=== PATIENT | female | born 1935 | race American Indian/Alaskan Native ===

== ENCOUNTER 2018-10-06 15:47 | Emergency (ER) | payer MEDICARE ==
--- NOTE | 2018-10-06 15:55 | Emergency Department Report ---
Blank Doc - Documentation Documentation: This is a 83-year-old female that presents with URI symptoms with sore throat. This initial assessment/diagnostic orders/clinical plan/treatment(s) is/are subject to change based on patient's health status, clinical progression and re- assessment by fellow clinical providers in the ED. Further treatment and workup at subsequent clinical providers discretion. Patient/guardians urged not to elope from the ED as their condition may be serious if not clinically assessed and managed. Initial orders include: 1- Patient sent to MAIN for further evaluation and treatment 2- xray
--- NOTE | 2018-10-06 17:59 | XRay Report ---
PROCEDURE: Chest. TECHNIQUE: PA and lateral views. HISTORY: Cough. COMPARISONS: None. FINDINGS: The heart size is normal. There is mild tortuosity and calcification in the thoracic aorta. The lungs are clear and well expanded. There are no pleural effusions. 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 There is a mild lumbar scoliosis. IMPRESSION: No evidence of acute disease. This document is electronically signed by Josué Taylor MD., October 06 2018 05:57:14 PM ET
--- NOTE | 2018-10-06 18:01 | Emergency Department Report ---
- General Chief Complaint: Upper Respiratory Infection Stated Complaint: THROAT PAIN Time Seen by Provider: 10/06/18 15:54 Source: patient Mode of arrival: Ambulatory Limitations: No Limitations - History of Present Illness MD Complaint: sore throat (voice change hoarseness) -: days(s) (5) Severity: moderate Quality: dull Improves With: nothing Associated Symptoms: denies other symptoms, sore throat. denies: myalgias, chest pain, shortness of breath, abdominal pain, nausea, diarrhea, right sweats, weight loss, epistaxis - Related Data Allergies Allergy/AdvReac Type Severity Reaction Status Date / Time No Known Allergies Allergy Unverified 10/06/18 15:48 ED Review of Systems ROS: Stated complaint: THROAT PAIN Other details as noted in HPI Constitutional: denies: chills, fever Eyes: denies: eye pain, eye discharge, vision change ENT: denies: ear pain, throat pain Respiratory: denies: cough, shortness of breath, wheezing Cardiovascular: denies: chest pain, palpitations Endocrine: no symptoms reported Gastrointestinal: denies: abdominal pain, nausea, diarrhea Genitourinary: denies: urgency, dysuria, discharge Musculoskeletal: denies: back pain, joint swelling, arthralgia Skin: denies: rash, lesions Neurological: denies: headache, weakness, paresthesias Psychiatric: denies: anxiety, depression Hematological/Lymphatic: denies: easy bleeding, easy bruising ED Physical Exam - General Limitations: No Limitations General appearance: alert, in no apparent distress - Head Head exam: Present: atraumatic, normocephalic - Eye Eye exam: Present: normal appearance, PERRL Pupils: Present: normal accommodation - ENT ENT exam: Present: normal exam, mucous membranes moist, other (airway patent. erythema to pharynx no exudate. no fever or chills. no sweats. ) - Neck Neck exam: Present: normal inspection, full ROM. Absent: tenderness - Respiratory Respiratory exam: Present: normal lung sounds bilaterally. Absent: respiratory distress, wheezes, accessory muscle use, decreased breath sounds ( ) - Cardiovascular Cardiovascular Exam: Present: regular rate, normal rhythm. Absent: systolic murmur, diastolic murmur, rubs, gallop - GI/Abdominal GI/Abdominal exam: Present: soft, normal bowel sounds - Extremities Exam Extremities exam: Present: normal inspection - Back Exam Back exam: Present: normal inspection - Neurological Exam Neurological exam: Present: alert, oriented X3 - Psychiatric Psychiatric exam: Present: normal affect, normal mood - Skin Skin exam: Present: warm, dry, intact, normal color. Absent: rash Critical care attestation.: If time is entered above; I have spent that time in minutes in the direct care of this critically ill patient, excluding procedure time. ED Disposition Clinical Impression: Pharyngitis Disposition: TO HOME OR SELFCARE Is pt being admited?: No Does the pt Need Aspirin: No Condition: Stable Instructions: Pharyngitis (ED), Laryngitis (ED) Additional Instructions: Please follow up to primary care provider as recommended by your primary care provider initially. Strep test was negative. Please follow the instructions provided for laryngitis Referrals: [facility] EDWINA [Primary Care Provider] - 3-5 Days
[2018-10-06 19:47] VITALS: BP 137/89
== END 2018-10-06 21:05 | disposition home or self-care (01) ==
LOC: ED 15:47
DX: J02.9 Acute pharyngitis, unspecified (principal)
CPT/HCPCS: 71046; 87116; 87430; 99283

== ENCOUNTER 2018-10-11 15:05 | Emergency (ER) | payer MEDICARE ==
--- NOTE | 2018-10-11 15:18 | Emergency Department Report ---
Chief Complaint: Shoulder Injury Stated Complaint: EXTREME SHOULDER PAIN Time Seen by Provider: 10/11/18 15:15 - HPI History of Present Illness: here in er co throat and shoulder pain pt tearful she states she is depressed she drove to er she lives alone with grandson in and out. Gerald he seems to be no help per pt rx unclear recent fall- hit door social work to see pt to eval home situation mse completed MSE screening note: Focused history and physical exam performed. Due to findings the following was ordered: ED Disposition for MSE Condition: Stable
[2018-10-11 15:20] VITALS: BP 122/71
[2018-10-11] MEDS ORDERED: IBUPROFEN PO ONE (15:21)
--- NOTE | 2018-10-11 16:31 | XRay Report ---
PROCEDURE: XR SHOULDER BILAT 2+V TECHNIQUE: Bilateral shoulders 6 views HISTORY: b shoulder pain COMPARISONS: FINDINGS: There is marked degenerative change bilaterally. There is marked glenohumeral joint space narrowing. This is greater on the right there is remodeling of the glenoid with subchondral cystic and sclerotic change. There is marked remodeling of the humeral head with inferior osteophyte. On the right there is severe narrowing somewhat less prominent than on the prior exam with subchondral cystic and sclero tic change the glenoid and remodeling of the humeral head with inferior osteophyte. The AC joints tiffanie ear within normal limits. No acute fracture or dislocation is identified. IMPRESSION: Advanced degenerative changes at both glenohumeral joints somewhat greater on the left. This document is electronically signed by Juan Jones MD., October 11 2018 04:29:08 PM ET
--- NOTE | 2018-10-11 17:02 | Emergency Department Report ---
HPI - General Chief Complaint: Shoulder Injury Time Seen by Provider: 10/11/18 15:15 - HPI HPI: 83-year-old -Turkish female presents to the emergency department from home with complaint of bilateral shoulder pain that has since resolved. She says this been having this shoulder pain over the past few weeks but it worsened last night where she was unable to sleep. She tried some Tylenol with some transient relief. She was given some ibuprofen to triage she says that her shoulder pain has resolved completely at this point. She denies any fall or injury. She has a past medical history of hypertension. She does not currently have a primary care physician. ED Past Medical Hx - Past Medical History Previous Medical History?: Yes Hx Hypertension: Yes - Social History Smoking Status: Unknown if ever smoked ED Review of Systems ROS: Stated complaint: EXTREME SHOULDER PAIN Other details as noted in HPI Comment: All other systems reviewed and negative Constitutional: denies: fever Eyes: denies: eye pain, vision change ENT: denies: ear pain, throat pain Respiratory: denies: cough, shortness of breath Cardiovascular: denies: chest pain, palpitations Gastrointestinal: denies: abdominal pain, vomiting Genitourinary: denies: dysuria, discharge Musculoskeletal: arthralgia. denies: joint swelling Skin: denies: rash, lesions Neurological: denies: headache, weakness Physical Exam - Physical Exam Vital Signs: Vital Signs 10/11/18 15:16 Temperature 97.1 F L Pulse Rate 89 Respiratory 18 Rate Blood Pressure 122/71 O2 Sat by Pulse 99 Oximetry Physical Exam: GENERAL: The patient is well-developed well-nourished. HEENT: Normocephalic. Atraumatic. Patient has moist mucous membranes. EYES: Extraocular motions are intact. NECK: Supple. Trachea is midline. CHEST/LUNGS: Clear to auscultation. There is no respiratory distress noted. HEART/CARDIOVASCULAR: Regular. There is no tachycardia. There is no obvious murmur. ABDOMEN: There is no abdominal distention. SKIN: Skin is warm and dry. NEURO: The patient is awake, alert, and oriented. The patient is cooperative. The patient has no focal neurologic deficits. The patient has normal speech. MUSCULOSKELETAL: There is no tenderness or deformity. There is no evidence of acute injury. ED Course Vital Signs 10/11/18 15:16 Temperature 97.1 F L Pulse Rate 89 Respiratory 18 Rate Blood Pressure 122/71 O2 Sat by Pulse 99 Oximetry ED Medical Decision Making - Radiology Data Radiology results: report reviewed PROCEDURE: XR SHOULDER BILAT 2+V TECHNIQUE: Bilateral shoulders 6 views HISTORY: b shoulder pain COMPARISONS: FINDINGS: There is marked degenerative change bilaterally. There is marked glenohumeral joint space narrowing. This is greater on the right there is remodeling of the glenoid with subchondral cystic and sclerotic change. There is marked remodeling of the humeral head with inferior osteophyte. On the right there is severe narrowing somewhat less prominent than on the prior exam with subchondral cystic and sclerotic change the glenoid and remodeling of the humeral head with inferior osteophyte. The AC joints appear within normal limits. No acute fracture or dislocation is identified. IMPRESSION: Advanced degenerative changes at both glenohumeral joints somewhat greater on the left. This document is electronically signed by Juan Mendez MD., October 11 2018 04:29:08 PM ET Transcribed By: BETINA Dictated By: COLBY MENDEZ MD Electronically Authenticated By: COLBY MENDEZ MD Signed Date/Time: 10/11/18 1631 - Medical Decision Making This patient presents to the emergency department with some acute on chronic bilateral shoulder pain. There was no injury, fall, or obvious initial etiology. X-ray of the bilateral shoulders were done that showed advanced degenerative changes consistent with osteoarthritis. At the time of my examination, after the patient received some ibuprofen, she has no pain and is a symptomatically. Patient will be given a referral for orthopedist for follow-up for evaluation of this degenerative joint disease but return to the ER with any worsening of her symptoms or any acute distress. - Differential Diagnosis fracture, dislocation, osteoarthritis Critical Care Time: No Critical care attestation.: If time is entered above; I have spent that time in minutes in the direct care of this critically ill patient, excluding procedure time. ED Disposition Clinical Impression: Arthritis of both shoulder regions Bilateral shoulder pain Qualifiers: Chronicity: unspecified Qualified Code(s): M25.511 - Pain in right shoulder Disposition: DC-01 TO HOME OR SELFCARE Is pt being admited?: No Condition: Stable Instructions: Osteoarthritis (ED), Arthralgia (ED) Additional Instructions: I am giving you a referral for some local primary care physicians. I am also giving you two different referrals for local orthopedists (bone / joint doctors) to follow-up regarding your shoulder pains. Return to the emergency Department with any worsening of your symptoms or any acute distress. Referrals: SADE ARELLANO MD [Staff Physician] - 2-3 Days [facility] [Provider Group] - 2-3 Days ROSLYN FARRAR MD [Staff Physician] - 2-3 Days ZAYRA IRVIN MD [Staff Physician] - 2-3 Days Time of Disposition: 17:07
== END 2018-10-11 17:15 | disposition home or self-care (01) ==
LOC: ED 15:05
DX: M19.012 Primary osteoarthritis, left shoulder (principal); M19.011 Primary osteoarthritis, right shoulder; I10 Essential (primary) hypertension

== ENCOUNTER 2018-10-29 14:59 | Emergency (ER) | payer MEDICARE ==
--- NOTE | 2018-10-29 15:45 | Emergency Department Report ---
Blank Doc - Documentation Documentation: This is a 83-year-old female that presents for a social services aide consult. Patient stated needs a new place to stay. This initial assessment/diagnostic orders/clinical plan/treatment(s) is/are subject to change based on patient's health status, clinical progression and re-assessment by fellow clinical providers in the ED. Further treatment and workup at subsequent clinical providers discretion. Patient/guardians urged not to elope from the ED as their condition may be serious if not clinically assessed and managed. Initial orders include: 1- Patient sent to [facility] for further evaluation and treatment 2- social services aide consult called and pending
--- NOTE | 2018-10-29 16:36 | Cat Scan Report ---
PROCEDURE: CT HEAD/BRAIN WO CON TECHNIQUE: Axial helical imaging from the skull base to the vertex. HISTORY: Altered Mental Status COMPARISONS: None FINDINGS: Low-attenuation in the subcortical and deep white matter of the cerebral hemispheres bilaterally most likely represent areas of chronic postischemic demyelination/small vessel disease. There is no CT evidence of an acute intracranial process and no evidence of intracranial hemorrhage o r mass effect. Ventricular size is concordant with the degree of atrophy. The visualized portions of the orbits, paranasal and mastoid sinuses are unremarkable. The bony structures are unremarkable. IMPRESSION: 1. No evidence of an acute intracranial process, intracranial hemorrhage or mass effect. If there is a clinical suspicion of an acute intracranial process, MRI brain may be helpful for furth er evaluation. This document is electronically signed by Laurie Rhodes MD., October 29 2018 04:33:51 PM ET
[2018-10-29 17:07] LABS: Basophils % (Auto) 0.7 % (0.0-1.8); Eosinophils # (Auto) 0.1 K/mm3 (0.0-0.4); Eosinophils % (Auto) 1.7 % (0.0-4.3); Hematocrit 43.6 % (30.3-42.9); Hemoglobin 14.4 gm/dl (10.1-14.3); Lymphocytes # (Auto) 1.1 K/mm3 (1.2-5.4); Lymphocytes % (Auto) 29.7 % (13.4-35.0); Mean Corpuscular HGB Conc 33 % (30-34); Mean Corpuscular Volume 89 fl (79-97); Monocytes # (Auto) 0.3 K/mm3 (0.0-0.8); Platelet Count 259 K/mm3 (140-440); Red Blood Count 4.92 M/mm3 (3.65-5.03); Red Cell Distribution Width 14.9 % (13.2-15.2)
[2018-10-29 17:18] LABS: INR 0.91 (0.87-1.13); Partial Thromboplastin Time 25.9 Sec. (24.2-36.6)
[2018-10-29 17:35] LABS: Alanine Aminotransferase 10 units/L (7-56); Albumin 4.5 g/dL (3.9-5); BUN/Creatinine Ratio 21; Blood Urea Nitrogen 15 mg/dL (7-17); Calcium 9.7 mg/dL (8.4-10.2); Hemolysis Index 0
[2018-10-29 17:37] LABS: Bilirubin,Direct < 0.2 mg/dL (0-0.2)
[2018-10-29 19:21] VITALS: BP 186/78
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
[2018-10-29 19:39] LABS: Bilirubin,Urine NEG (Negative); Blood,Urine NEG (Negative); Color,Urine Yellow (Yellow); Mucus,Urine 1+ /HPF; Protein,Urine <15 mg/dL mg/dL (Negative)
--- NOTE | 2018-10-29 22:41 | Emergency Department Report ---
Blank Doc - Documentation Documentation: Patient is daughter is now at the bedside and expresses confusion as to why her mother is being referred for inpatient psychiatric admission. She states that her mother is hear because of her ongoing knee pain. She is here on October 11 and received a referral to [facility]. Patient was trying to drive to the orthopedic clinic when she got lost and then when she realized it was too far away. As per daughter her plan was to come here to the hospital to obtain a name for a closer orthopedic doctor clinic. Patient apparently did not have an appointment with the orthopedic clinic and was planning to just walk in. I explained to the daughter that both triage, mid-level, ED physician, nurse, and mental health provider all documented the patient was confused, had vague complaints, and was not able to tell as her address or why she was here. Apparently since daughter is at the bedside patient is now more oriented and less confused. This improvement was also noted upon reassessment by nurse and mental health relationship counselor. Daughter now confirms that patient is at her baseline mental status. Since medical workup was unremarkable and patient is at baseline mental status as per daughter she will be discharged home in care of her daughter. They're requesting closer orthopedic follow-up. They were giving follow-up for [facility] in [place], [place] and instead will be given follow-up information for Dr. Bates (ortho) here in [place].
== END 2018-10-29 23:20 ==
LOC: ED 14:59
DX: R41.82 Altered mental status, unspecified (principal); I10 Essential (primary) hypertension
CPT/HCPCS: 36415; 70450; 80048; 80076; 81001; 82140; 82962; 84443; 84484; 85025; 85610; 85730; 87040; 87086; 93005; 93010; 99285; G0480; 80320